=== PATIENT | female | born 1960 | race Caucasian/White ===

== ENCOUNTER 2023-03-04 08:54 | Outpatient (OUT) | payer OTHER, SELFPAY ==
[2023-03-04 10:34] LABS: Prothrombin Time 9.8 sec (9.0-11.6)
[2023-03-04 10:35] LABS: INR <0.93
== END 2023-03-04 08:55 | disposition home or self-care (01) ==
LOC: LAB 09:00
PROVIDERS: PCP Family Medicine; Visit Provider Family Medicine
DX: Z51.81 Encounter for therapeutic drug level monitoring (principal)
CPT/HCPCS: 36415; 85610